=== PATIENT | male | born 1970 | race Caucasian/White ===

== ENCOUNTER → 2020-08-27 | Outpatient (CLI) | payer OTHER ==
--- NOTE | 2020-08-28 10:19 | DIREP ---
PROCEDURE:MRI SPINE LUMBAR W/O COMPARISON:None. INDICATIONS:LOW BACK PAIN TECHNIQUE:A comprehensive examination was performed utilizing a variety of imaging planes and imaging parameters to optimize visualization of suspected pathology. Images were performed without intravenous gadolinium contrast. FINDINGS: ALIGNMENT:Normal. VERTEBRA:No fracture, pars defect, or osseous lesion. CORD/CAUDA EQUINA:Normal size, contour, and signal intensity. PARASPINAL AREA:Normal with no visible mass. OTHER:None. LUMBAR DISC LEVELS T12-L1:No significant disc/facet abnormality, spinal stenosis, or foraminal stenosis. L1-L2:Mild annular bulge. No central canal or neural foraminal stenosis. L2-L3:No significant disc/facet abnormality, spinal stenosis, or foraminal stenosis. L3-L4:Diffuse annular/biforaminal bulge extending into the floor of the neural foramina producing mild narrowing. Mild narrowing of the lateral recesses. Mild central canal stenosis. L4-L5:Annular bulge extending into the floor of the neural foramina producing mild narrowing. No central canal stenosis. Mild bilateral neural foraminal narrowing. L5-S1:Interbody fusion L5-S1. Neural foramina patent. No central canal stenosis. CONCLUSION: 1. Annular bulges L3-4 and L4-5 producing mild bilateral neural foraminal narrowing. 2. Mild central canal stenosis L3-4. 3. Postsurgical changes of interbody fusion at L5-S1. Dictated by: Andrea Mulligan M.D. on 08/28/2020 at 09:59 AM
== END | disposition home or self-care (01) ==
LOC: RAD 14:54
PROVIDERS: ATTEND Registered Nurse General Practice
DX: M48.061 Spinal stenosis, lumbar region without neurogenic claudication (principal); M43.27 Fusion of spine, lumbosacral region; K21.9 Gastro-esophageal reflux disease without esophagitis; E03.9 Hypothyroidism, unspecified; I10 Essential (primary) hypertension; M54.5 Low back pain; E11.9 Type 2 diabetes mellitus without complications
CPT/HCPCS: 72148

== ENCOUNTER → 2020-09-04 | Outpatient (CLI) | payer OTHER ==
--- NOTE | 2020-09-04 13:51 | DIREP ---
PROCEDURE:XRAY SPINE LUMBAR 2-3 VWS COMPARISON:[facility], MR, MRI SPINE LUMBAR W/O, 08/27/2020, 03:10 PM. INDICATIONS:LOW BACK PAIN TECHNIQUE:AP, lateral, and coned down lateral views of the lumbar spine are provided. FINDINGS: ALIGNMENT:Normal. VERTEBRAE:Anterior interbody fusion at L5-S1 without evidence of complication. Vertebral body heights are maintained. Mild lower lumbar facet arthrosis mild multilevel endplate spurring. DISK SPACES:Normal. SPONDYLOLISTHESIS:None. SACROILIAC JOINTS:Normal. OTHER:Surgical clips project over the upper abdomen and left pelvis. Atherosclerotic vascular calcifications noted. CONCLUSION: 1. Anterior interbody fusion at L5-S1 without evidence of complication. 2. Mild spondylosis of the lumbar spine. Dictated by: Raleigh Walden MD. on 09/04/2020 at 01:47 PM
== END | disposition home or self-care (01) ==
LOC: RAD 12:59
PROVIDERS: ATTEND Registered Nurse General Practice
DX: M47.816 Spondylosis without myelopathy or radiculopathy, lumbar region (principal); M54.5 Low back pain
CPT/HCPCS: 72100